=== PATIENT | male | born 1945 | race Two or more races ===

== ENCOUNTER 2019-11-27 19:03 | Inpatient (IN) | payer BC, MEDICAID ==
[~2019-11-27] VITALS: Ht 177.8 cm; Wt 86.0 kg
[2019-11-27] MEDS ORDERED: SODIUM CHLORIDE 0.9% 1,000 ML IV ONE (20:30)
[2019-11-27] MEDS ORDERED: dilTIAZem 25 MG/5 ML VIAL IV ONE (20:30)
[2019-11-27] MEDS ORDERED: MORPHINE SULFATE 4 MG/ML SYR/VIAL IV PRN (22:15)
[2019-11-27] MEDS ORDERED: ZOLPIDEM TARTRATE 5 MG TAB PO PRN (22:15)
[2019-11-27] MEDS ORDERED: ACETAMINOPHEN 325 MG TAB PO PRN (22:15)
[2019-11-27] MEDS ORDERED: ONDANSETRON HCL 4 MG/2 ML VIAL IV PRN (22:15)
[2019-11-27] MEDS ORDERED: METOPROLOL TARTRATE 1MG/1ML-5ML VIAL IV PRN (22:15)
[2019-11-27] MEDS ORDERED: NITROGLYCERIN 0.4 MG SL TAB SL PRN ×2 (22:15)
[2019-11-27] MEDS ORDERED: MORPHINE SULF INJ 2 MG/ML SYRINGE 1ML IV PRN (22:15)
[2019-11-27] MEDS ORDERED: LORazepam 0.5 MG TAB PO PRN (22:15)
[2019-11-27 22:37] LABS: Basophils # (auto) 0.1 10 ^3/uL (0-0.2); Basophils % (auto) 1.3 % (0.0-2.0); Eosinophils # (auto) 0.5 10 ^3/uL (0-0.8); Eosinophils % (auto) 8.4 % (0.0-7.0); Hemoglobin 14.1 g/dL (13.5-17.5); Lymphocytes % (auto) 34.2 % (10.0-50.0); Mean Corpuscular Hemoglobin 30.9 pg (28.0-32.0); Mean Corpuscular Hgb Conc. 33.5 g/dL (32.0-36.0); Mean Corpuscular Volume 92.4 fL (80.0-100.0); Monocytes # (auto) 0.5 10 ^3/uL (0-1.3); Monocytes % (auto) 9.3 % (0.0-12.0); Neutrophils # (auto) 2.7 10 ^3/uL (1.6-8.6); Neutrophils % (auto) 46.8 % (37.0-80.0); Nucleated Red Blood Cells % 0.1 %; Platelet Count (auto) 179 10^3/uL (140-450); Red Blood Cells 4.54 10^6/uL (4.5-5.90); Red Cell Distribution Width 15.3 % (11.8-14.3); White Blood Cell 5.8 10^3/uL (4.4-10.8)
[2019-11-27 22:53] LABS: INR 1.02 (0.9-1.15); Partial Thromboplastin Time 28.6 sec (23.64-32.05)
[2019-11-27 22:56] LABS: Albumin 3.5 g/dL (3.4-5.0); Calcium 8.4 mg/dL (8.5-10.1); Magnesium 2.1 mg/dL (1.6-2.6); Potassium 4.5 mmol/L (3.5-5.1)
[2019-11-27 23:03] LABS: BUN/Creatinine Ratio 18.9; Bilirubin, Total 0.3 mg/dL (0.2-1.0); Total Protein 7.4 g/dL (6.4-8.2)
[2019-11-27] MEDS: SODIUM CHLORIDE 0.9% 1,000 ML IV SCH (23:27)
[2019-11-28 00:04] VITALS: BP 124/71
--- NOTE | 2019-11-28 00:04 | NUR ---
Telemetry admit from JJ ALVAREZ admitted to Telemetry unit. Patient oriented to primary RN, unit, room, bed, and unit policies regarding patient care and visiting hours. Patient now on continuous telemetry monitoring, tele box #60 and telemetry reading on arrival to unit is sinus rhythm 82 bpm. Patient placed on bedside oxygen, weighed by bedscale and encouraged to call if he needs something. Fall and safety precautions in place. Call light within reach and able to use. All questions and concerns addressed, patient verbalized understanding and in agreement. Will continue to monitor q1h and prn.
[2019-11-28] MEDS ORDERED: MORPHINE SULF INJ 2 MG/ML SYRINGE 1ML IV PRN ×2 (00:15)
[2019-11-28] MEDS ORDERED: NITROGLYCERIN 0.4 MG SL TAB SL PRN (00:15)
[2019-11-28] MEDS ORDERED: ONDANSETRON HCL 4 MG/2 ML VIAL IV PRN (00:15)
[2019-11-28] MEDS ORDERED: ACETAMINOPHEN 325 MG TAB PO PRN (00:15)
[2019-11-28] MEDS ORDERED: HYDROcodone-ACET 5/325MG TAB PO PRN (00:15)
[2019-11-28] MEDS ORDERED: CLOP75TA41 PO (02:03)
[2019-11-28] MEDS ORDERED: CARV12.544 PO (02:03)
[2019-11-28] MEDS ORDERED: ASPI-498 PO (02:03)
[2019-11-28] MEDS ORDERED: ATOR20TA50 PO (02:03)
[2019-11-28] MEDS ORDERED: LOSA25TA38 PO (02:03)
--- NOTE | 2019-11-28 05:03 | NUR ---
C/O Warmth and Palpitation Patient is complaining of sudden onset of generalized warmth and states that his heart "feels funny" and states he felt his heart beat harder and identifies sensation as palpitation. Patient denies chest pain/pressure, SOB, N/V, dizziness, denies radiation, and additional abnormal symptom. Patient vitals signs taken at this time and are as follows: BP: 104/65 mmHg; Heart rate 73 bpm, Respirations 16 bpm even and unlabored, Oxygen Saturation 99% on 2L NC; and 0 pain using adult pain scale. Will obtain EKG.
--- NOTE | 2019-11-28 05:07 | NUR ---
EKG EKG obtained. Will report findings to on-call hospitalist .
--- NOTE | 2019-11-28 05:08 | NUR ---
RESOLVE OF SYMPTOMS PATIENT REASSESSED AND DENIES PREVIOUS EXPERIENCED SYMPTOMS OF WARMTH/PALPITATIONS. PATIENT STATES HE FEELS "OK" NOW AND EPISODE HAS CEASED. WILL CONTINUE TO MONITOR.
[2019-11-28 05:15] VITALS: BP 112/58
--- NOTE | 2019-11-28 05:16 | NUR ---
EKG CONFIRMED BY MD ON-CALL HOSPITALIST SHOWN EKG, RECENT FINDINGS, AND PATIENT COMPLAINT/STATUS. MD MUNGUIA READ AND SIGNED EKG AT THIS TIME. SEE EKG IN CHART. NO NEW ORDERS RECEIVED. PER MD, WILL MAKE MD AWARE IF PATIENT EXPERIENCES CHEST PAIN. WILL CONTINUE TO MONITOR.
--- NOTE | 2019-11-28 06:40 | NUR ---
POM POM TAKEN DOWN TO PHARMACY. WILL NOTIFY DAY SHIFT RN.
[2019-11-28 07:07] LABS: Calcium 7.9 mg/dL (8.5-10.1); Potassium 4.2 mmol/L (3.5-5.1)
[2019-11-28 07:09] LABS: Basophils # (auto) 0.1 10 ^3/uL (0-0.2); Basophils % (auto) 1.2 % (0.0-2.0); Eosinophils # (auto) 0.4 10 ^3/uL (0-0.8); Eosinophils % (auto) 7.3 % (0.0-7.0); Hematocrit 34.9 % (41.0-53.0); Hemoglobin 11.8 g/dL (13.5-17.5); Lymphocytes % (auto) 36.6 % (10.0-50.0); Mean Corpuscular Hemoglobin 30.8 pg (28.0-32.0); Mean Corpuscular Hgb Conc. 33.7 g/dL (32.0-36.0); Mean Corpuscular Volume 91.5 fL (80.0-100.0); Monocytes # (auto) 0.6 10 ^3/uL (0-1.3); Monocytes % (auto) 10.4 % (0.0-12.0); Neutrophils # (auto) 2.4 10 ^3/uL (1.6-8.6); Neutrophils % (auto) 44.5 % (37.0-80.0); Nucleated Red Blood Cells % 0.2 %; Platelet Count (auto) 164 10^3/uL (140-450); Red Blood Cells 3.81 10^6/uL (4.5-5.90); Red Cell Distribution Width 15.1 % (11.8-14.3); White Blood Cell 5.5 10^3/uL (4.4-10.8)
[2019-11-28 07:13] LABS: BUN/Creatinine Ratio 22.1
--- NOTE | 2019-11-28 07:30 | NUR ---
Opening Shift Note Assumed patient care from NOC RN. Patient currently sitting up in bed for breakfast, no signs of distress at this time, patient denies chest pain states he is at 0/10 at this time. Respirations even and unlabored, call light within reach, safety precautions in place, will continue to monitor.
[2019-11-28 08:45] VITALS: BP 97/63
[2019-11-28] MEDS: LOSARTAN POTASSIUM 25 MG TAB PO SCH (09:54)
[2019-11-28] MEDS: DOCUSATE SOD 100 MG CAP PO SCH (09:54)
[2019-11-28] MEDS: ASPirin 81 mg TAB PO SCH (09:54)
[2019-11-28] MEDS: CARVEDILOL 3.125 MG TAB PO SCH ×2 (09:55→21:58)
[2019-11-28] MEDS: CLOPIDOGREL BISULFATE 75 MG TAB PO SCH (09:56)
--- NOTE | 2019-11-28 10:45 | NUR ---
SS Left message for Divina Mccarthy. regarding patient request for assistance obtaining a PCP and questions regarding insurance.
[2019-11-28] MEDS: SODIUM CHLORIDE 0.9% 1,000 ML IV SCH ×2 (11:35→22:04)
[2019-11-28 11:54] LABS: Urine Bacteria NONE SEEN /hpf (None Seen); Urine Blood 1+ /uL (Negative); Urine Specific Gravity 1.019 (1.001-1.035); Urine WBC 2 /hpf (0 - 3)
[2019-11-28 12:41] VITALS: BP 101/69
--- NOTE | 2019-11-28 13:25 | NUR ---
at Bedside Dr. Ding at bedside discussing plan of care with patient. Per MD, will speak with Dr. Mckeon regarding cardio consult and obtain 2D echo.
--- NOTE | 2019-11-28 15:05 | NUR ---
MD SANCHES notified of troponin lab values. aware, new orders received for Lovenox 1mg/kg/daily weights q 12hr.
[2019-11-28 16:59] VITALS: BP 121/76
--- NOTE | 2019-11-28 19:14 | NUR ---
CLOSING NOTE REPORT GIVEN TO PREM HERNANDEZ RN.
[2019-11-28] MEDS: ENOXAPARIN SOD 80 MG/0.8ML SYRINGE SC SCH (21:58)
[2019-11-28] MEDS ORDERED: ATORVASTATIN 20 MG TAB PO SCH (22:00)
--- NOTE | 2019-11-28 22:00 | NUR ---
REFUSED LOVENOX PATIENT EDUCATED ON INDICATION FOR MEDICATION AND MEDICATION SAFETY. PATIENT REFUSES MEDICATION. PATIENT EDUCATED REINFORCED. PATIENT EXPRESSES CONCERN OF POTENTIAL FOR BLEEDING IN REGARDS TO PATIENT'S REFUSAL OF BLOOD TRANSFUSIONS. SPENT TIME WITH PATIENT GOING OVER IMPORTANCE OF MEDICATION AND SAFETY PRECAUTIONS OF MONITORING COAGULATION VALUES. PATIENT CONTINUE TO REUSE. SEE EMAR. WILL CONTINUE TO MONITOR.
[2019-11-28 23:24] VITALS: BP 111/73
[2019-11-29 05:36] VITALS: BP 109/72
--- NOTE | 2019-11-29 07:30 | NUR ---
Opening Shift Note: Assumed care of patient. Patient asleep at this time. No S/S of distress/SOB or pain. Respirations even and unlabored. Bed in lowest locked position, side rails up x 2, call light within reach. Patient will be instructed on POC and to call for assist PRN, will continue to monitor for changes Q1hr and PRN.
[2019-11-29 08:25] VITALS: BP 107/77
[2019-11-29] MEDS: ASPirin 81 mg TAB PO SCH (09:22)
[2019-11-29] MEDS: DOCUSATE SOD 100 MG CAP PO SCH (09:22)
[2019-11-29] MEDS: LOSARTAN POTASSIUM 25 MG TAB PO SCH (09:23)
[2019-11-29] MEDS: CARVEDILOL 3.125 MG TAB PO SCH (09:23)
[2019-11-29] MEDS: ENOXAPARIN SOD 80 MG/0.8ML SYRINGE SC SCH (09:24)
[2019-11-29] MEDS: CLOPIDOGREL BISULFATE 75 MG TAB PO SCH (09:24)
--- NOTE | 2019-11-29 10:00 | NUR ---
1000 medications Patient refused Lovenox and Colace. Patient continually refused after being educated. Will continue to monitor.
--- NOTE | 2019-11-29 11:40 | NUR ---
IV insertion: IV access obtained, via clean sterile technique by inserting 20 gauge catheter at left forearm after 1 attempt. IV secured properly. No trauma to site. Patient tolerated well.
[2019-11-29 13:00] VITALS: BP 112/48
[2019-11-29] MEDS: SODIUM CHLORIDE 0.9% 1,000 ML IV SCH (14:15)
--- NOTE | 2019-11-29 15:57 | NUR ---
DR. LEARY: Dr. Ding at bedside. Discussed POC with patient
--- NOTE | 2019-11-29 16:06 | NUR ---
assessment re: ss consult prescriptions and PCP Patient is a 74 year old male who is alert and oriented. Patients cognitive abilities are intact. Prior to admission patient lived home with family and functioned independently. Patient informed me he is able to care for his own ADLs. Per patient he will return home to his prior living arrangements post discharge and family will transport him home. Patient informed me he has a cane and fww for use use, but does not need to use them. I informed patient of his ss consult for having trouble getting prescriptions and PCP. Patient informed me he has has trouble seeing his PCP due to Diaz virus and his 2nd PCP cancelled his appointment. Patient informed me he had trouble getting his prescriptions due to no PCP. Divina Oliver to see patient prior to discharge for PCP. Patient has no post discharge needs as of now. I will continue to monitor and follow up as appropriate. I informed patient he has a right to speak to a social science analyst regarding all care. I informed patient he has a right to participate in any and all discharge planning. Patient does not have a POA and advanced directive. I have offered patient information on POA and advanced directives. I informed the patient the advantages and benefits of having an Advanced Directive. Patient verbalized understanding and agreed to discharge plan. Addendum: 11/29/19 at 1612 by Divina MONROE Amended: Links added.
[2019-11-29 16:40] VITALS: BP 110/73
[2019-11-29 17:00] VITALS: BP 140/81
--- NOTE | 2019-11-29 17:36 | NUR ---
SENT TELE BOX TO ICU, SPOKE WITH STEVEN
--- NOTE | 2019-11-29 17:37 | NUR ---
Discharge instructions given as ordered. Encourage to follow up with PMD as instructed. All questions and concerns addressed. Patient verbalized understanding. Medication reconciliation form completed and copy given to patient. Home medications held in Pharmacy returned to patient. both IV's removed with catheter intact, pressure dressing applied. Telemetry unit returned to ICU. Patient taken to vehicle via wheelchair with all personal belongings, accompanied by staff and family member. No distress noted at time of departure.
== END 2019-11-29 17:53 | disposition home or self-care (01) | DRG 310 ==
LOC: EDBD 19:03 → ER 19:07 → TELE 19:08 → TELE-WESTW 11-28 00:06
PROVIDERS: ADMIT Hospitalist; ATTEND Internal Medicine
DX: I48.0 Paroxysmal atrial fibrillation (principal); I25.10 Atherosclerotic heart disease of native coronary artery without angina pectoris; I42.9 Cardiomyopathy, unspecified; E11.9 Type 2 diabetes mellitus without complications; I11.0 Hypertensive heart disease with heart failure; I50.9 Heart failure, unspecified; Z82.49 Family history of ischemic heart disease and other diseases of the circulatory system; Z83.3 Family history of diabetes mellitus; Z87.891 Personal history of nicotine dependence; Z98.61 Coronary angioplasty status; Z88.0 Allergy status to penicillin
CPT/HCPCS: 36415; 71045; 80048; 80053; 80061; 81001; 83735; 83880; 84443; 84484; 85025; 85610; 85730; 93306; 96361; 96374; 99291; G0378

== ENCOUNTER 2020-07-01 23:55 | Emergency (ER) | payer BC, MEDICAID ==
[~2020-07-01] VITALS: Ht 177.8 cm; Wt 82.6 kg
[~2020-07-01 23:55] MED LIST: ASPI-498 PO; ATOR20TA50 PO; CARV12.544 PO; CLOP75TA70 PO; LOSA25TA38 PO
[2020-07-02 02:02] LABS: Basophils # (auto) 0.1 10 ^3/uL (0-0.2); Eosinophils # (auto) 0.4 10 ^3/uL (0-0.8); Eosinophils % (auto) 5.9 % (0.0-7.0); Hematocrit 40.9 % (41.0-53.0); Hemoglobin 13.8 g/dL (13.5-17.5); Lymphocytes # (auto) 1.8 10 ^3/uL (0.4-5.4); Lymphocytes % (auto) 27.8 % (10.0-50.0); Mean Corpuscular Hemoglobin 30.8 pg (28.0-32.0); Mean Corpuscular Hgb Conc. 33.8 g/dL (32.0-36.0); Monocytes # (auto) 0.6 10 ^3/uL (0-1.3); Neutrophils # (auto) 3.6 10 ^3/uL (1.6-8.6); Neutrophils % (auto) 56.3 % (37.0-80.0); Nucleated Red Blood Cells % 0.2 %; Platelet Count (auto) 196 10^3/uL (140-450); White Blood Cell 6.5 10^3/uL (4.4-10.8)
[2020-07-02 02:05] LABS: INR 0.99 (0.9-1.15); Partial Thromboplastin Time 26.5 sec (23.0-31.2)
[2020-07-02 02:10] LABS: Albumin 3.8 g/dL (3.4-5.0); Anion Gap 5 (5-15); Blood Urea Nitrogen 24 mg/dL (7-18); Calcium 9.2 mg/dL (8.5-10.1); Carbon Dioxide 26 mmol/L (21-32); Chloride 108 mmol/L (98-107); Glucose 82 mg/dL (74-106); Sodium 139 mmol/L (136-145)
[2020-07-02 02:12] LABS: Alanine Aminotransferase 31 U/L (16-61); Aspartate Aminotransferase 26 U/L (15-37); BUN/Creatinine Ratio 25.5; GFR African American 101 mL/min; GFR Non-African American 83 mL/min
[2020-07-02 02:17] LABS: Alkaline Phosphatase 85 U/L (45-117); Bilirubin, Total 0.3 mg/dL (0.2-1.0); Total Protein 8.5 g/dL (6.4-8.2)
[2020-07-02] MEDS ORDERED: LABETALOL HCL 5 MG/ML 4ML SYRINGE IV ONE (02:30)
[2020-07-02] MEDS ORDERED: PHENYLEPHRINE HCL 1 % NASAL SPRAY 15ML ONE (03:00)
[2020-07-02] MEDS ORDERED: PHENYLEPHRINE HCL 10 MG/ML VL ONE (03:25)
[2020-07-02] MEDS ORDERED: fentaNYL CITRATE 100 MCG/2 ML VL IV ONE (04:45)
[2020-07-02 09:15] LABS: Urine Bacteria NONE SEEN /hpf (None Seen); Urine Blood 3+ /uL (Negative); Urine Specific Gravity 1.022 (1.001-1.035); Urine WBC 9 /hpf (0 - 3)
[2020-07-02 10:53] VITALS: BP 116/60
== END 2020-07-02 10:56 | disposition home or self-care (01) ==
LOC: ER 23:55
DX: R04.0 Epistaxis (principal); I10 Essential (primary) hypertension; I11.0 Hypertensive heart disease with heart failure; I50.9 Heart failure, unspecified; E78.5 Hyperlipidemia, unspecified; Z88.0 Allergy status to penicillin; Z20.822 Contact with and (suspected) exposure to COVID-19; Z87.891 Personal history of nicotine dependence
CPT/HCPCS: 36415; 80053; 81001; 84484; 85025; 85610; 85730; 87426; 96374; 99285; C9803; J2370; J3490; U0003